=== PATIENT | female | born 1940 | race Caucasian/White ===

== ENCOUNTER 2018-02-18 15:22 | Observation (INO) ==
--- NOTE | 2018-02-18 15:37 | Emergency Department Note ---
Disposition Clinical Impression: Medication intolerance Disposition: Admitted As Inpatient Condition: Fair General Adult HPI - General Chief complaint: ED General Medical Stated complaint: Dizzy, diaphretic, nausea s/p new medication Time Seen by Provider: 02/18/18 15:35 Source: patient Mode of arrival: ambulatory Limitations: no limitations Nursing Notes Reviewed: Yes Vital Signs Reviewed: Yes - History of Present Illness HPI Narrative: 77-year-old female started on tramadol prednisone and and gabapentin this is a result of having sacroiliitis or sacroiliac disease patient states despite the medications is not helping the pain but she is tired weak feels lightheaded dizzy every started shortly after taking the medication she denies just be just prescribed today since diarrhea melena hematochezia hematemesis numbness tingling weakness cough or congestion Onset (ago): day(s) Location: left, right, lower extremity Radiation: non-radiation Pain Scale: 0 Improves with: nothing Worsens with: nothing Associated symptoms: Denies: confusion, chest pain, cough, diaphoresis, fever/ chills, headaches, loss of appetite, malaise, nausea/vomiting, rash, seizure, shortness of breath, syncope, weakness Treatments Prior to Arrival: none - Related Data Home Medications Medication Instructions Recorded Confirmed Aspirin 81 mg PO DAILY 03/01/15 02/18/18 Calcium Carbonate/Vitamin D3 1 each PO BID 03/01/15 02/18/18 [Calcium 600 + D Tablet] Multivitamin [Multi-Day Vitamins] 1 each PO DAILY 03/01/15 02/18/18 Vitamin E (Dl,Tocopheryl Acet) 400 unit PO DAILY 03/01/15 02/18/18 [Vitamin E] Gabapentin [Neurontin] 300 mg PO DAILY 02/18/18 02/18/18 Tramadol HCl [Ultram] 50 mg PO QID PRN 02/18/18 02/18/18 predniSONE [PredniSONE] 10 mg PO DAILY 02/18/18 02/18/18 Previous Rx's Medication Instructions Recorded Cyanocobalamin (Vitamin B-12) 1,000 mcg PO QMONTH #1 vial 04/20/17 [Vitamin B-12] Allergies Allergy/AdvReac Type Severity Reaction Status Date / Time acetaminophen [From Percocet] AdvReac Vomiting Verified 05/17/17 09:11 Oxycodone [From Percocet] AdvReac Vomiting Verified 05/17/17 09:11 All systems ED: reviewed and negative except as stated. Review of Systems: As Per HPI Constitutional: Denies: fever, chills, weakness Eyes: Denies: eye pain, eye discharge ENT ED: Denies: ear pain, throat pain Cardiovascular: Denies: chest pain, palpitations, dyspnea on exertion Respiratory: Denies: cough, dyspnea, wheezes Gastrointestinal: Denies: abdominal pain, nausea Genitourinary: Denies: urgency, dysuria, frequency Musculoskeletal: Denies: back pain, neck pain Integumentary: Denies: rash, abrasion Neurological: Denies: headache Psychiatric: Denies: anxiety, depression Endocrine: Denies: fatigue Hematological/Lymphatic: Denies: easy bleeding Allergic/Immunologic: Denies: facial swelling Past Medical History - Past Medical History Attestation: Yes The following information was validated with the patient. 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: non-contributory - Social History Smoking Status: Never smoker Smokeless Tobacco Status: No Alcohol use: Reports: none Drug use: Reports: none Physical Exam - General Limitations: no limitations General appearance: alert, in no apparent distress, anxious - Head Head exam: atraumatic, normocephalic, normal inspection - Eye Eye exam: Present: normal appearance, PERRL, EOMI - ENT ENT exam: normal exam, normal oropharynx, mucous membranes moist, TM's normal bilaterally, normal external ear exam - Neck Neck exam: Present: normal inspection, full ROM, trachea midline - Chest Chest inspection: Present: normal inspection, symmetric chest wall rise - Respiratory Respiratory exam: Present: normal lung sounds bilaterally - Cardiovascular Cardiovascular exam: Present: regular rate, normal rhythm, normal heart sounds - Abdominal Exam Abdominal exam: Present: soft, Non-Tender, normal bowel sounds. Absent: mass, pulsatile mass - Extremities Exam Extremities exam: Present: normal inspection, full ROM, normal capillary refill. Absent: tenderness, pedal edema, joint swelling, calf tenderness - Back Exam Back exam: Present: normal inspection, full ROM, sciatic notch tenderness (L), straight leg raise (L). Absent: muscle spasm, sciatic notch tenderness (R), straight leg raise (R) - Neurological Exam Neurological exam: Present: alert, oriented X3, CN II-XII intact, normal gait - Psychiatric Psychiatric exam: Present: normal affect, normal mood - Skin Skin exam: Present: warm, dry, intact, normal color, other (Initially presented sallow in color but as she rested comfortably in the bed her color did improve significantly) Course Course Narrative: Patient was seen and examined patient was given a fluid bolus patient though did not appear to be feeling very well and with a type of movement but has some tachycardic type changes and his result patient was admitted for observation change in medications for management of her illness Vital Signs Temperature 97.8 F 02/18/18 15:27 Pulse Rate 67 02/18/18 15:27 Respiratory Rate 20 02/18/18 15:27 Blood Pressure 135/61 02/18/18 15:27 O2 Sat by Pulse Oximetry 99 02/18/18 15:27 Temperature 98.3 F 02/19/18 04:00 Pulse Rate 64 02/19/18 04:00 Respiratory Rate 17 02/19/18 04:00 Blood Pressure 98/59 02/19/18 04:00 O2 Sat by Pulse Oximetry 96 02/19/18 04:00 Oxygen Delivery Oxygen Delivery Room Air Medical Decision Making - MDM Narrative Medical decision making narrative: Medication tolerance stroke heart attack metabolic versus bacterial or viral infection - Medical Records Medical records reviewed: Yes I reviewed the patient's medical records. - Lab Data Lab results reviewed: Yes I reviewed the patient's lab results. Result diagrams: 02/18/18 15:39 02/18/18 15:39 Lab Results 02/18/18 02/18/18 02/18/18 Range/Units 15:35 15:39 15:39 WBC 7.6 (4.3-11.1) K/mcL RBC 4.19 (3.82-4.97) M/mcL Hgb 12.7 (11.5-15.4) g/dL Hct 38.8 (35.3-44.9) % MCV 92.6 (83.0-100.0) fL MCH 30.3 (28.0-33.3) pg MCHC 32.7 (31.6-35.5) g/dL RDW 13.1 (11.5-14.5) % Plt Count 184 (140-400) K/mcL MPV 11.2 (9.4-12.4) fL Immature Gran % 0.7 (0-4) % Seg Neutrophils % 92.2 % Lymphocytes % 6.1 % Monocytes % 0.9 % Eosinophils % 0.0 % Basophils % 0.1 % Neutrophils # 7.0 (1.6-8.9) K/mcL Lymphocytes # 0.5 L (0.6-4.6) K/mcL Monocytes # 0.1 (0.0-1.3) K/mcL Eosinophils # 0.0 (0.0-0.6) K/mcL Basophils # 0.0 (0.0-0.2) K/mcL PT 12.2 H (9.4-12.1) Seconds INR 1.1 APTT 33.0 (26.0-36.0) Seconds Sodium (136-145) mEq/L Potassium (3.5-5.1) mEq/L Chloride (98-107) mEq/L Carbon Dioxide (23-29) mEq/L BUN (8-23) mg/dL Creatinine (0.60-1.20) mg/dL Est GFR ( Amer) (> 60) Est GFR (Non-Af Amer) (> 60) BUN/Creatinine Ratio (6-26) Glucose (70-105) mg/dL POC Glucose 127 H (70-99) mg/dL Calculated Osmolality (280-300) Calcium (8.6-10.3) mg/dL Total Bilirubin (0.3-1.0) mg/dL AST (13-39) Units/L ALT (7-52) Units/L Alkaline Phosphatase (34-104) Units/L Troponin I (< 0.04) ng/mL Serum Total Protein (6.4-8.9) g/dL Albumin (3.5-5.7) g/dL Globulin (2.4-3.5) g/dL Albumin/Globulin Ratio (1.1-2.2) 02/18/18 Range/Units 15:39 WBC (4.3-11.1) K/mcL RBC (3.82-4.97) M/mcL Hgb (11.5-15.4) g/dL Hct (35.3-44.9) % MCV (83.0-100.0) fL MCH (28.0-33.3) pg MCHC (31.6-35.5) g/dL RDW (11.5-14.5) % Plt Count (140-400) K/mcL MPV (9.4-12.4) fL Immature Gran % (0-4) % Seg Neutrophils % % Lymphocytes % % Monocytes % % Eosinophils % % Basophils % % Neutrophils # (1.6-8.9) K/mcL Lymphocytes # (0.6-4.6) K/mcL Monocytes # (0.0-1.3) K/mcL Eosinophils # (0.0-0.6) K/mcL Basophils # (0.0-0.2) K/mcL PT (9.4-12.1) Seconds INR APTT (26.0-36.0) Seconds Sodium 138 (136-145) mEq/L Potassium 3.8 (3.5-5.1) mEq/L Chloride 102 (98-107) mEq/L Carbon Dioxide 26 (23-29) mEq/L BUN 18 (8-23) mg/dL Creatinine 0.89 (0.60-1.20) mg/dL Est GFR ( Amer) > 60 (> 60) Est GFR (Non-Af Amer) > 60 (> 60) BUN/Creatinine Ratio 20 (6-26) Glucose 137 H (70-105) mg/dL POC Glucose (70-99) mg/dL Calculated Osmolality 290 (280-300) Calcium 9.1 (8.6-10.3) mg/dL Total Bilirubin 0.5 (0.3-1.0) mg/dL AST 26 (13-39) Units/L ALT 16 (7-52) Units/L Alkaline Phosphatase 69 (34-104) Units/L Troponin I < 0.03 (< 0.04) ng/mL Serum Total Protein 6.6 (6.4-8.9) g/dL Albumin 3.8 (3.5-5.7) g/dL Globulin 2.8 (2.4-3.5) g/dL Albumin/Globulin Ratio 1.4 (1.1-2.2) - Radiology Data Radiology results reviewed: Yes I reviewed the patient's radiology results. ITS Impressions Abdomen/Pelvis CT 02/18/18 15:34 IMPRESSION: Bilateral nephrolithiasis. No acute noncontrast abdominopelvic abnormality. D/ / Rakel Crabtree Cha, MD / Rakel Crabtree Cha, MD Interpreting Provider: Rakel Crabtree Cha, MD Chest X-Ray 02/18/18 15:34 IMPRESSION: No acute cardiopulmonary process. D/ / Freedom Alvarenga MD / Freedom Alvarenga MD Interpreting Provider: Freedom Alvarenga MD - EKG Data EKG #1 EKG attestation: Yes I reviewed and interpreted this EKG. EKG results narrative: Sinus rhythm rate 66. 161 care 85 QT 402 axis LXXX Critical Care Time Critical Care Time: No
[2018-02-18 15:52] LABS: Basophils % 0.1 %; Hematocrit 38.8 % (35.3-44.9); Hemoglobin 12.7 g/dL (11.5-15.4); Immature Granulocytes % 0.7 % (0-4); Lymphocytes # 0.5 K/mcL (0.6-4.6); Lymphocytes % 6.1 %; Mean Corpuscular HGB Conc 32.7 g/dL (31.6-35.5); Mean Corpuscular Hemoglobin 30.3 pg (28.0-33.3); Mean Corpuscular Volume 92.6 fL (83.0-100.0); Mean Platelet Volume 11.2 fL (9.4-12.4); Monocytes # 0.1 K/mcL (0.0-1.3); Monocytes % 0.9 %; Platelet Count 184 K/mcL (140-400); Red Blood Count 4.19 M/mcL (3.82-4.97); Red Cell Distribution Width 13.1 % (11.5-14.5); Segmented Neutrophils % 92.2 %
[2018-02-18 15:54] LABS: INR 1.1; Prothrombin Time 12.2 Seconds (9.4-12.1)
[2018-02-18 16:06] LABS: Alanine Aminotransferase 16 Units/L (7-52); Albumin 3.8 g/dL (3.5-5.7); Albumin/Globulin Ratio 1.4 (1.1-2.2); Alkaline Phosphatase 69 Units/L (34-104); Aspartate Amino Transferase 26 Units/L (13-39); BUN/Creatinine Ratio 20 (6-26); Bilirubin,Total 0.5 mg/dL (0.3-1.0); Blood Urea Nitrogen 18 mg/dL (8-23); Calcium 9.1 mg/dL (8.6-10.3); Carbon Dioxide 26 mEq/L (23-29); Chloride 102 mEq/L (98-107); Globulin 2.8 g/dL (2.4-3.5); Glucose 137 mg/dL (70-105); Osmolality,Calculated 290 (280-300); Potassium 3.8 mEq/L (3.5-5.1); Sodium 138 mEq/L (136-145); Total Protein 6.6 g/dL (6.4-8.9); Troponin I < 0.03 ng/mL (< 0.04); eGFR For Non-African Americans > 60 (> 60)
[2018-02-18] MEDS ORDERED: *HR* Nalbuphine 10 MG/ML AMPUL IVP STA (16:43)
[2018-02-18] MEDS ORDERED: Ondansetron 4 MG/2 ML VIAL IVP ONE (16:50)
[2018-02-18] MEDS ORDERED: Cyanocobalamin (B-12) 1,000 MCG TABLET PO SCH (19:17)
[2018-02-18] MEDS ORDERED: *HR* HYDROcodone/Acet 5/325 mg TABLET PO PRN (19:17)
[2018-02-18] MEDS ORDERED: Naloxone 0.4 MG/ML INJ IVP PRN (19:17)
[2018-02-18] MEDS ORDERED: Calcium 600 + D PO SCH (21:00)
[2018-02-19 05:37] LABS: INR 1.1; Prothrombin Time 12.8 Seconds (9.4-12.1)
[2018-02-19 05:39] LABS: Activated Partial Thrombo Time 34.5 Seconds (26.0-36.0)
[2018-02-19] MEDS ORDERED: Aspirin 81 MG TAB.CHEW PO SCH (09:00)
[2018-02-19] MEDS ORDERED: Multivit/Ca/Min/Fe/FA 1 TAB TABLET PO SCH (09:00)
[2018-02-19] MEDS ORDERED: predniSONE 10 MG TABLET PO SCH (09:00)
[2018-02-19 10:59] VITALS: BP 125/75
--- NOTE | 2018-02-19 12:48 | Internal Med History&Physical ---
Date of Encounter: 02/19/18 Time of Encounter: 12:15 Assessment and Plan (1) Adverse drug reaction Current visit: Yes Status: Acute Now resolved. I recommended she continue prednisone (tapering dose) but hold Ultram and Neurontin for now. She will use Tylenol for pain since she does not have allergy to it. The hospital record reports allergy to acetaminophen but she reports vomiting when taking Percocet in the past. Qualifiers: Encounter type: initial encounter Qualified Code(s): T50.905A - Adverse effect of unspecified drugs, medicaments and biological substances, initial encounter (2) Low back pain Current visit: Yes Status: Chronic LS-spine x-rays of 02/17/2018 showed moderate dextroscoliosis with moderate severe degenerative disc changes at L2-3, grade 2 spondylolisthesis at L5-S1 with possible pars defect and spondylolysis at L5. She will use prednisone and Tylenol as per above. Qualifiers: Chronicity: chronic Back pain laterality: midline Sciatica presence: with sciatica Sciatica laterality: sciatica of left side Qualified Code(s): M54.42 - Lumbago with sciatica, left side; G89.29 - Other chronic pain Internal Medicine - H&P: HPI Chief complaint: Dizziness and vomiting Admitted From: Emergency Dept Plans for Post Hospital Care: Home History of present illness: Ms. Ochoa is a 77 year old female came to emergency room stating she had dizziness and vomiting after taking gabapentin, tramadol, and prednisone given her the previous day by her PCP for low back and left hip pain. She denies any hematemesis. She denies fever or diarrhea. She was evaluated in emergency room and admitted to [facility] floor for ongoing care needs. She states she feels back to her baseline now and wishes to be discharged home. She denies previous use of these medications. Past Med Surg Social Fam HX - Past Medical History Medical history: cancer, migraine, other Additional medical history: vit b12 deficiency. hx blood clots Psychiatric history: no psych history - Past Surgical History Surgical History: cancer surgery, colectomy, hysterectomy, other Additional surgical history: COLECTOMY - Social History Smoking Status: Never smoker Smokeless Tobacco Status: No Alcohol use: none Drug use: none - Family History Father Hx Family Cardiac Disorders: Yes Internal Medicine - H&P: Meds Aspirin 81 mg PO DAILY 03/01/15 [History] Calcium Carbonate/Vitamin D3 [Calcium 600 + D Tablet] 1 each PO BID 03/01/15 [ History] Multivitamin [Multi-Day Vitamins] 1 each PO DAILY 03/01/15 [History] Vitamin E (Dl,Tocopheryl Acet) [Vitamin E] 400 unit PO DAILY 03/01/15 [History] Cyanocobalamin (Vitamin B-12) [Vitamin B-12] 1,000 mcg PO QMONTH #1 vial [Rx] Gabapentin [Neurontin] 300 mg PO DAILY 02/18/18 [History] Tramadol HCl [Ultram] 50 mg PO QID PRN 02/18/18 [History] predniSONE [PredniSONE] 10 mg PO DAILY 02/18/18 [History] 3 Allergy/AdvReac Type Severity Reaction Status Date / Time acetaminophen [From Percocet] AdvReac Vomiting Verified 05/17/17 09:11 Oxycodone [From Percocet] AdvReac Vomiting Verified 05/17/17 09:11 All Systems PM: A 10-system review of systems was performed and is negative for pertinent findings except as documented above in the HPI. Review of systems: Gen.: She states her weight has been stable the past 2 months Cardiovascular: She denies hypertension RI heart failure DVT or pulmonary embolus. She was diagnosed with PSVT during a September 2017 ER visit. Heart rate was up to 160s on the monitor but it converted spontaneously is a retention he get a 12-lead EKG. No medication was prescribed and she has had no recurrence. She does report predictable chest pain that she describes as a stabbing sensation on heavy exertion. She states she will see a criminal justice department chair within the next few weeks. Respiratory: She is a lifelong nonsmoker and has no known chronic lung disease GI: She denies disorders of her liver gallbladder or exocrine pancreas : She denies hematuria dysuria or kidney stones Neurologic: She denies large distribution strokes or seizures. Endocrine: She denies diabetes thyroid disease or hyperkalemia Hematology/oncology: She had colon cancer with segmental resection 2008 which was curative. She denies postoperatively having chemotherapy or radiation therapy. She denies anemia or other internal malignancies. Psychiatric: She denies anxiety depression or other mental health issues [place] skeletal: She has DJD but denies gout or other bone joint or muscle disorders. - Constitutional Vitals: Temp Pulse Resp BP Pulse Ox 98.2 F 61 14 125/75 100 02/19/18 10:55 02/19/18 10:55 02/19/18 10:55 02/19/18 10:55 02/19/18 10:55 Exam: Oral: She is a well-developed lean female resting comfortably in bed who appears in no acute distress at present time. She states she feels back to her baseline. HEENT: Head is atraumatic and normocephalic. Eyes: EOMI. There is no scleral icterus. Mouth: Mucosa is moist. Neck: Supple and nontender. There is no thyromegaly or adenopathy noted. Heart: Regular without murmurs gallops or ectopics Lungs: No wheezes or crackles are heard. Abdomen: Soft and nontender. No masses or guarding are noted. Extremities: There is no cyanosis edema or clubbing noted. Dorsalis pedis and posttibial pulses are 1-2 over 2 bilaterally. Neurologic: Mental status: She is talkative and a good historian. Cranial nerves: Smile is symmetric. Forehead wrinkles bilaterally. Tongue protrudes midline. EOMI. reports no vertigo on lying down or raising up during examination. Motor: There is no pronator drift. Cerebellar: Finger to nose is intact bilaterally. Skin: Warm and dry Internal Med - H&P Results - Labs CBC & Chem 7: 02/18/18 15:39 02/18/18 15:39
--- NOTE | 2018-02-19 13:01 | Discharge Summary ---
Date of Encounter: 02/19/18 Time of Encounter: 12:15 - Discharge Diagnosis (1) Adverse drug reaction Priority: Primary Status: Acute Qualifiers: Encounter type: initial encounter Qualified Code(s): T50.905A - Adverse effect of unspecified drugs, medicaments and biological substances, initial encounter (2) Low back pain Priority: Secondary Status: Chronic Qualifiers: Chronicity: chronic Back pain laterality: midline Sciatica presence: with sciatica Sciatica laterality: sciatica of left side Qualified Code(s): M54.42 - Lumbago with sciatica, left side; G89.29 - Other chronic pain Hospital course: Ms. Ochoa is a 77 year old female who came to emergency room stating she had dizziness and vomiting after taking gabapentin, tramadol, and prednisone given her the previous day by her PCP for low back and left hip pain. She denies any hematemesis. She denies fever or diarrhea. She was evaluated in emergency room and admitted to [facility] for ongoing care needs. Initial orders were written by the emergency room physician. I saw her the afternoon of February 19 and performed a history physical and discharge. When I saw her she stated the adverse reactions to medications had completely resolved and she felt back to her baseline. She wished to be discharged which I felt was reasonable. I recommended she use OTC Tylenol and continue prednisone as prescribed. She will hold the Ultram and gabapentin for now. I reviewed her LS-spine x-rays of 02/17/2018. She will follow with her PCP Dr. Monreal within 1 week. - Time Spent with Patient Total time spent providing and/or coordinating discharge services: - Discharge Medications Home Medications: Aspirin 81 mg PO DAILY 03/01/15 [History] Calcium Carbonate/Vitamin D3 [Calcium 600 + D Tablet] 1 each PO BID 03/01/15 [ History] Multivitamin [Multi-Day Vitamins] 1 each PO DAILY 03/01/15 [History] Vitamin E (Dl,Tocopheryl Acet) [Vitamin E] 400 unit PO DAILY 03/01/15 [History] Cyanocobalamin (Vitamin B-12) [Vitamin B-12] 1,000 mcg PO QMONTH #1 vial [Rx] predniSONE [PredniSONE] 10 mg PO DAILY 02/18/18 [History] Allergies/Adverse Reactions: 3 Allergy/AdvReac Type Severity Reaction Status Date / Time acetaminophen [From Percocet] AdvReac Vomiting Verified 05/17/17 09:11 Oxycodone [From Percocet] AdvReac Vomiting Verified 05/17/17 09:11 Date of admission: 02/18/18 18:42 Primary care physician: Alvarado Monreal DO - Constitutional Vitals: Temp Pulse Resp BP Pulse Ox 98.2 F 61 14 125/75 100 02/19/18 10:55 02/19/18 10:55 02/19/18 10:55 02/19/18 10:55 02/19/18 10:55 - Patient Status Disposition: Home, Self-Care Condition: Fair - Discharge Instructions Follow Up With: Alvarado Monreal DO [Primary Care Provider] - 1 week - Diet and Activity Activity: resume usual activities as tolerated Diet: advance to your usual diet
--- NOTE | 2018-02-21 17:47 | Electrocardiograph Report ---
[address] [address] Test Date: 2018-02-18 Pat Name: Sunita Ochoa Department: [id number] Room: [facility] Gender: F Digital Photo Printer: Arleen : 1940 Requested By: Guerline Morales Order Number: [id number] Reading MD: Keely Lazaro Measurements Intervals [place] Rate: 66 P: 76 OK: 161 QRS: 80 QRSD: 85 T: 66 QT: 402 QTc: 416 Interpretive Statements SINUS RHYTHM RIGHT ATRIAL ENLARGEMENT LEFT ATRIAL ENLARGEMENT POSSIBLE RIGHT VENTRICULAR CONDUCTION DELAY Electronically Signed On 02-21-2018 17:45:18 EDT by Keely Lazaro
== END 2018-02-19 13:27 | disposition home or self-care (01) ==
LOC: INPPIK 15:22 → EMEROOPIK 15:22 → INPPIK 19:09
PROVIDERS: ADMIT Internal Medicine; ATTEND Internal Medicine